=== PATIENT | female | born 1940 | race Caucasian/White ===

== ENCOUNTER 2018-05-12 12:09 | Outpatient (CLI) | payer MEDICARE | END 2018-05-12 12:10 | disposition home or self-care (01) | LOC: LAB.WCP 12:09 | PROVIDERS: ATTEND Family Medicine | DX: M25.511 Pain in right shoulder (principal) | CPT/HCPCS: 36415; 85651 ==

== ENCOUNTER 2018-12-21 08:00 | Outpatient (CLI) | payer MEDICARE ==
[2018-12-21 18:34] LABS: BASOPHILS % (AUTO) 0.2 %; HGB - HEMOGLOBIN 11.4 g/dL (12.0-16.0); LYMPHOCYTES % (AUTO) 56.9 %; MEAN CORPUSCULAR HEMOGLOBIN 26.5 pg (27.0-31.0); MEAN CORPUSCULAR HGB CONC 31.2 g/dL (32.0-36.0); MEAN CORPUSCULAR VOLUME 84.7 fL (81.0-99.0); MEAN PLATELET VOLUME 10.1 fL (7.9-10.8); MONOCYTES % (AUTO) 30.2 %; NEUTROPHILS % (AUTO) 11.5 %; PLT - PLATELET COUNT 188 10^3/uL (130-450); RED BLOOD COUNT 4.31 10^6/uL (4.20-5.40); RED CELL DISTRIBUTION WIDTH 16.4 % (12.0-15.0); WHITE BLOOD COUNT 20.1 x10^3/uL (4.8-10.8)
[2018-12-21 18:37] LABS: ABNORMAL LYMPHS % (MANUAL) 0 %; BAND NEUTROPHILS % (MANUAL) 0 %
[2018-12-21 18:59] LABS: ALBUMIN 4.1 g/dL (3.2-5.5); ALBUMIN/GLOBULIN RATIO 1.4 (1.0-2.2); BILIRUBIN,TOTAL 0.5 mg/dL (0.2-1.0); CALCIUM 9.3 mg/dL (8.5-10.3); CREATININE 0.9 mg/dL (0.4-1.0); TOTAL PROTEIN 7.1 g/dL (6.7-8.2)
[2018-12-21 19:36] LABS: DIFFERENTIAL COMMENT MANUAL DIFFERENTIAL; EOSINOPHILS # (MANUAL) 0.4 10^3/uL (0-0.7); LYMPHOCYTES # (MANUAL) 17.3 10^3/uL (1.5-3.5); LYMPHOCYTES % (MANUAL) 86 %; PLATELET ESTIMATE, MANUAL NORMAL (130-450,000) (NORMAL); PLATELET MORPHOLOGY NORMAL APPEARANCE (NORMAL); RBC MORPHOLOGY (MULTIPLE) 1+ HYPOCHROMASIA (NORMAL)
== END 2018-12-21 23:59 | disposition home or self-care (01) ==
LOC: LAB.WCP 08:00
PROVIDERS: ATTEND Family Medicine
DX: D72.829 Elevated white blood cell count, unspecified (principal)
CPT/HCPCS: 36415; 80053; 85025

== ENCOUNTER 2018-12-22 08:00 | Outpatient (CLI) | payer MEDICARE | END 2018-12-22 23:59 | disposition home or self-care (01) | LOC: LAB.R 08:00 | PROVIDERS: ATTEND Family Medicine | DX: R19.7 Diarrhea, unspecified (principal) | CPT/HCPCS: 81599; 83630; 87045; 87046; 87493 ==

== ENCOUNTER 2019-01-09 09:51 | Outpatient (CLI) | payer MEDICARE ==
[2019-01-09] MEDS ORDERED: IOVERSOL 320 50 ML VIAL ONE (10:13)
[2019-01-09] MEDS ORDERED: IOVERSOL 320 100 ML VIAL IVP ONE ×2 (10:13→11:24)
[2019-01-09] MEDS ORDERED: IOVERSOL 320 50 ML VIAL PO ONE (11:24)
--- NOTE | 2019-01-09 15:22 | CT Report ---
Reason: SPLENOMEGALY, DIARRHEA, LEUKOCYTOSIS Procedure Date: 01/09/2019 Accession Number: [id number] / [id number] Procedure: CT - Abdomen/Pelvis W CPT Code: FULL RESULT: EXAM: CT ABDOMEN AND PELVIS EXAM DATE: 01/09/2019 11:05 AM. CLINICAL HISTORY: Splenomegaly, diarrhea, leukocytosis. COMPARISONS: None. TECHNIQUE: Routine helical CT imaging was performed through the abdomen and pelvis. IV contrast: 90 mL Optiray 320. Enteric contrast: Yes. Reconstructions: Coronal and sagittal. In accordance with CT protocol optimization, one or more of the following dose reduction techniques were utilized for this exam: automated exposure control, adjustment of mA and/or KV based on patient size, or use of iterative reconstructive technique. FINDINGS: Lung Bases: Unremarkable. Liver: Mild hepatomegaly. No mass identified. Gallbladder/Bile Ducts: Unremarkable. Spleen: Splenomegaly, up to 19 cm. Pancreas: Normal. Adrenal Glands: Normal. Kidneys: Normal. No masses or hydronephrosis. Peritoneal Cavity/Bowel: There is no bowel obstruction. There is no definite lymphadenopathy by size criteria. There is no free fluid or free air. Pelvic Organs: In the pelvis is a hypodense/cystic 3.6 x 3.4 cm mass, possibly adnexal in origin. Vasculature: No aneurysms or other significant abnormality. Bones: No significant abnormality. Other: None. IMPRESSION: Hepatosplenomegaly. Hypodense pelvic mass is possibly adnexal in origin, not characterized on this study. In the postmenopausal patient, this would not be considered normal. Recommend pelvic ultrasound for further characterization. RADIA
== END 2019-01-09 09:52 | disposition home or self-care (01) ==
LOC: DI 09:51
PROVIDERS: ATTEND Family Medicine
DX: R16.2 Hepatomegaly with splenomegaly, not elsewhere classified (principal); R19.00 Intra-abdominal and pelvic swelling, mass and lump, unspecified site
CPT/HCPCS: 74177; Q9967

== ENCOUNTER 2019-01-12 16:20 | Outpatient (CLI) | payer MEDICARE ==
--- NOTE | 2019-01-13 08:44 | Ultrasound Report ---
Reason: PELVIC MASS Procedure Date: 01/12/2019 Accession Number: [id number] / [id number] Procedure: US - Pelvic w/Transvaginal CPT Code: FULL RESULT: EXAM: PELVIC ULTRASOUND EXAM DATE: 01/12/2019 04:26 PM. CLINICAL HISTORY: Pelvic lesion seen on abdominal pelvic CT. COMPARISON: Abdominal pelvic CT 01/09/2019. TECHNIQUE: Realtime transabdominal pelvic scan performed to identify the uterus and adnexa and as an overview of other pelvic structures, followed by transvaginal scan to provide greater detail of the uterus and adnexa, with static image documentation. FINDINGS: Uterus: 5.5 x 2.8 x 4.3 cm, volume 35 cc. Anteverted position. Normal overall size and echotexture. Masses: None. Endometrium: 5 mm. No masses or thickening evident. There is a small to moderate amount of fluid in the endometrial canal which appears simple measuring 3 mm in thickness. Cervix: Unremarkable. Right Ovary: 1.5 x 1.0 x 1.4 cm, volume 1.2 cc. Normal echotexture and blood flow. Suboptimally visualized. Left Ovary: 5.6 x 2.9 x 5.8 cm, volume 49 cc. 2 prominent cysts or follicles measure together 5.3 x 3.2 x 4.6 cm. One contains a small amount of hemorrhagic debris. No solid or vascular nodules. No evidence for torsion. Free Fluid: None. Other: None. IMPRESSION: 1. 2 prominent cysts or follicles together measuring up to 5.3 cm as seen on CT. One has a small hemorrhagic component. Given their size, sonographic follow-up in 2-3 months may be considered. 2. Simple fluid in endometrial canal present.
== END 2019-01-12 16:21 | disposition home or self-care (01) ==
LOC: DI 16:20
PROVIDERS: ATTEND Family Medicine
DX: R19.00 Intra-abdominal and pelvic swelling, mass and lump, unspecified site (principal)
CPT/HCPCS: 76830; 76856

== ENCOUNTER 2019-02-24 10:05 | Outpatient (CLI) | payer MEDICARE | END 2019-02-24 10:06 | disposition home or self-care (01) | LOC: LAB 10:05 | PROVIDERS: ATTEND Obstetrics & Gynecology | DX: N83.202 Unspecified ovarian cyst, left side (principal) | CPT/HCPCS: 36415; 86304 ==

== ENCOUNTER 2019-04-05 09:40 | Outpatient (CLI) | payer MEDICARE ==
--- NOTE | 2019-04-05 13:25 | Mammography Report ---
Reason: ROUTINE MAMMO Procedure Date: 04/05/2019 Accession Number: [id number] / [id number] Procedure: TAYA - Screening Mammo w/[place] CPT Code: Final Report FULL RESULT: EXAM: Screening Mammo w/[place] DATE: 04/05/2019 10:15 AM CLINICAL HISTORY: The patient is an asymptomatic 78-year-old female. Maternal history of breast cancer. TECHNIQUE: (B) - Bilateral CC and MLO views were obtained. COMPARISON: 07/31/2014, 08/29/2010 PARENCHYMAL PATTERN: (D) - The breasts demonstrate heterogeneously dense fibroglandular parenchyma bilaterally. FINDINGS: The pattern of asymmetry is stable given positional variation and interval involution. There are no suspicious masses, calcifications, or areas of distortion. IMPRESSION: Negative examination. BI-RADS category 1. RECOMMENDATION: (ANNUAL) - Recommend routine annual screening mammography. BI-RADS CATEGORY: (1) - Negative. STANDARD QUALIFYING STATEMENTS: A negative or benign imaging report should not preclude biopsy if clinically suspicious findings are present. Dense breasts may obscure an underlying neoplasm. This examination was reviewed with the aid of 3D breast imaging (tomosynthesis).
== END 2019-04-05 09:41 | disposition home or self-care (01) ==
LOC: DI 09:40
PROVIDERS: ATTEND Obstetrics & Gynecology
DX: Z12.31 Encounter for screening mammogram for malignant neoplasm of breast (principal); Z80.3 Family history of malignant neoplasm of breast
CPT/HCPCS: 77063; 77067

== ENCOUNTER 2019-04-13 10:35 | Outpatient (CLI) | payer MEDICARE ==
--- NOTE | 2019-04-13 12:29 | Ultrasound Report ---
Reason: LT SIDE OVARIAN CYST Procedure Date: 04/13/2019 Accession Number: [id number] / [id number] Procedure: US - Pelvic w/Transvaginal CPT Code: Final Report FULL RESULT: EXAM: PELVIC ULTRASOUND EXAM DATE: 04/13/2019 11:59 AM. CLINICAL HISTORY: Left side ovarian cyst. COMPARISON: PELVIC W/TRANSVAGINAL 01/12/2019; ABDOMEN/PELVIS W/ 01/09/2019. TECHNIQUE: Realtime transabdominal pelvic scan performed to identify the uterus and adnexa and as an overview of other pelvic structures, followed by transvaginal scan to provide greater detail of the uterus and adnexa, with static image documentation. FINDINGS: Uterus: 5.6 x 2.9 x 4.0 cm, volume 35 cc. Retroflexed position. Normal overall size and echotexture. Masses: 1.3 x 1.0 x 1.6 cm right myometrial mass, likely a fibroid. Endometrium: 7 mm. Simple-appearing fluid is redemonstrated within the endometrium, fluid is 5 mm thick. Cervix: Unremarkable. Right Ovary: 1.7 x 1.1 x 1.3 cm, volume 1.4 cc. Normal echotexture and blood flow. Left Ovary: 6.7 x 3.8 x 5.5 cm, volume 73 cc. A bilobed cyst/two adjacent cysts are again seen measuring 3.7 x 3.3 x 3.4 and 3.1 x 2.6 x 3.3 cm, respectively, at this time. Appearance is mostly simple with no convincing internal solid soft tissue component, question minimally layering density in one of the two cysts, compatible with previous appearance. Free Fluid: Small to medium quantity of free fluid in the pelvis. Other: None. IMPRESSION: Interval enlargement of previously seen cystic conglomerate with development of pelvic fluid. Persistence of free fluid within the endometrium. Suspect uterine fibroid. RADIA
== END 2019-04-13 10:36 | disposition home or self-care (01) ==
LOC: DI 10:35
PROVIDERS: ATTEND Obstetrics & Gynecology
DX: N83.202 Unspecified ovarian cyst, left side (principal)
CPT/HCPCS: 76830; 76856

== ENCOUNTER 2019-05-04 15:31 | Outpatient (CLI) | payer MEDICARE ==
--- NOTE | 2019-05-04 22:58 | XRAY Report ---
Reason: RIGHT SHOULDER PAIN Procedure Date: 05/04/2019 Accession Number: [id number] / [id number] Procedure: WCP - Shoulder 2 View RT CPT Code: Final Report FULL RESULT: EXAM: RIGHT SHOULDER RADIOGRAPHY EXAM DATE: 05/04/2019 03:31 PM. CLINICAL HISTORY: Right shoulder pain, nontraumatic. COMPARISON: None. TECHNIQUE: 2 views. FINDINGS: Bones: Normal. No fracture or bone lesion. Joints: The glenohumeral and acromioclavicular joints are normally aligned. Mild acromioclavicular degenerative changes. No significant glenohumeral degenerative changes. Soft tissues: The visualized hemithorax is unremarkable. No soft tissue swelling. IMPRESSION: 1. No acute abnormality seen in the right shoulder. 2. Mild acromioclavicular degenerative changes. RADIA
== END 2019-05-04 15:32 | disposition home or self-care (01) ==
LOC: DI.WCP 15:31
PROVIDERS: ATTEND Family Medicine
DX: M19.011 Primary osteoarthritis, right shoulder (principal)

== ENCOUNTER 2020-10-15 08:00 | Outpatient (CLI) | payer MEDICARE | END 2020-10-15 08:01 | disposition home or self-care (01) | LOC: LAB.R 08:00 | PROVIDERS: ATTEND Nurse Practitioner | DX: R19.7 Diarrhea, unspecified (principal) | CPT/HCPCS: 81599; 87045; 87177; 87209; 87329; 87427; 87449; 87493 ==

== ENCOUNTER 2020-10-15 08:00 | Outpatient (CLI) | payer MEDICARE ==
[2020-10-15 18:43] LABS: BASOPHILS # (AUTO) 0.1 10^3/uL (0.0-0.1); BASOPHILS % (AUTO) 0.4 %; EOSINOPHILS # (AUTO) 0.2 10^3/uL (0.0-0.7); EOSINOPHILS % (AUTO) 1.4 %; HCT - HEMATOCRIT 38.3 % (37.0-47.0); HGB - HEMOGLOBIN 11.4 g/dL (12.0-16.0); LYMPHOCYTES # (AUTO) 11.2 10^3/uL (1.5-3.5); LYMPHOCYTES % (AUTO) 65.6 %; MEAN CORPUSCULAR HEMOGLOBIN 25.4 pg (27.0-31.0); MEAN CORPUSCULAR HGB CONC 29.8 g/dL (32.0-36.0); MEAN CORPUSCULAR VOLUME 85.5 fL (81.0-99.0); MEAN PLATELET VOLUME 9.9 fL (7.9-10.8); MONOCYTES # (AUTO) 2.4 10^3/uL (0.0-1.0); MONOCYTES % (AUTO) 13.9 %; NEUTROPHILS # (AUTO) 3.1 10^3/uL (1.5-6.6); NEUTROPHILS % (AUTO) 18.5 %; PLT - PLATELET COUNT 187 10^3/uL (130-450); RED BLOOD COUNT 4.48 10^6/uL (4.20-5.40); RED CELL DISTRIBUTION WIDTH 17.1 % (12.0-15.0)
[2020-10-15 18:51] LABS: ALBUMIN 4.4 g/dL (3.2-5.5); ALBUMIN/GLOBULIN RATIO 1.7 (1.0-2.2); ALKALINE PHOSPHATASE 64 IU/L (42-121); ALT ALANINE AMINOTRANSFERASE 15 IU/L (10-60); AST ASPARTATE AMINOTRANSFERASE 19 IU/L (10-42); BILIRUBIN,TOTAL 0.6 mg/dL (0.2-1.0); BUN - BLOOD UREA NITROGEN 12 mg/dL (6-20); CALCIUM 9.8 mg/dL (8.5-10.3); CARBON DIOXIDE - CO2 27 mmol/L (21-32); CHLORIDE 105 mmol/L (101-111); CHOL/HDL RATIO 5.1 (<4.4); CHOLESTEROL 246 mg/dL; CREATININE 0.8 mg/dL (0.4-1.0); GFR - MDRD 69 (>89); GLUCOSE 107 mg/dL (70-100); HDL CHOLESTEROL 48 mg/dL; LDL CHOLESTEROL,CALCULATED 158 mg/dL; LDL/HDL RATIO 3.3 (<4.4); POTASSIUM 4.3 mmol/L (3.5-5.0); SODIUM 139 mmol/L (135-145); TRIGLYCERIDES 202 mg/dL; VLDL CHOLESTEROL 40 mg/dL
[2020-10-15 18:52] LABS: BILIRUBIN,URINE NEGATIVE (NEGATIVE); GLUCOSE, URINE (UA) NEGATIVE (NEGATIVE); KETONES,URINE (UA) NEGATIVE (NEGATIVE); LEUKOCYTE ESTERASE, URINE NEGATIVE (NEGATIVE); NITRITE,URINE NEGATIVE (NEGATIVE); OCCULT BLOOD,URINE SMALL (NEGATIVE); PROTEIN,URINE NEGATIVE (NEGATIVE); UROBILINOGEN,URINE 0.2 (NORMAL) E.U./dL (NORMAL)
[2020-10-15 18:55] LABS: CLARITY,URINE CLEAR (CLEAR)
[2020-10-15 19:19] LABS: BACTERIA,URINE None Seen /HPF (None Seen); RBC,URINE 0-5 /HPF (0-5); SQUAMOUS EPITHELIAL CELL,UR NONE SEEN (<= Few); WBC,URINE 0-3 /HPF (0-5)
[2020-10-15 19:25] LABS: THYROID STIMULATING HORMONE 1.8 uIU/mL (0.34-5.60)
[2020-10-15 19:29] LABS: CRP - C-REACTIVE PROTEIN < 1.0 mg/dL (0-1.0)
[2020-10-15 20:09] LABS: SLIDE REVIEW? Indicated
[2020-10-15 21:18] LABS: RBC MORPHOLOGY (MULTIPLE) NORMAL APPEARANCE (NORMAL)
[2020-10-15 21:19] LABS: DIFFERENTIAL COMMENT MANUAL=AUTO DIFF; PLATELET ESTIMATE, MANUAL NORMAL (130-450,000) (NORMAL); PLATELET MORPHOLOGY NORMAL APPEARANCE (NORMAL); WBC MORPHOLOGY (MULTIPLE) 3+ HAIRY CELLS (NORMAL)
== END 2020-10-15 23:59 | disposition home or self-care (01) ==
LOC: LAB.WCP 08:00
PROVIDERS: ATTEND Nurse Practitioner
DX: C91.40 Hairy cell leukemia not having achieved remission (principal); R07.89 Other chest pain; R53.83 Other fatigue; R51.9 Headache, unspecified
CPT/HCPCS: 36415; 80053; 80061; 81001; 83721; 84443; 85025; 85651; 86140; 87086

== ENCOUNTER 2020-10-24 09:28 | Outpatient (CLI) | payer MEDICARE ==
--- NOTE | 2020-10-24 11:33 | CARDIAC PROCEDURE NOTE ---
Stress Test Report Service Date: 10/24/20 Service Time: 09:30 Ordering Provider: MARKUS Walton Indication for Test: Diffuse chest pressure, occurring primarily when lying down and relieved by getting up and walking. Significant Medical History: Generally healthy and fit woman (lizandro quispe), who reports a "few years" of intermittent supine chest pressure, which has intensified in recent weeks, becoming associated with "dizziness". Was found to be newly hypertensive (she reports BPs running 170's/low 100's) and 10 mg amlodipine was prescribed; however she felt poorly after taking first dose and has not continued it. Cardiac Risk Factors: Recently diagnosed HTN (as above); no known personal or family history of ASCVD; denies diabetes, tobacco smoking history; cholesterol status unknown (not treated). Type of Stress Test: ETT with Echocardiography Procedure: -Exercise Treadmill Test- After signing informed consent, baseline resting images were obtained. The patient then performed exercise using a Quintin protocol. The patient exercised for 7 minutes 49 seconds and achieved a peak heart rate of 145 (102 percent predicted maximum heart rate for age), and an estimated workload of 9.7 METS. The test was terminated due to achieving target heart rate and markedly hypertensive BP response. Resting heart rate: 72 Peak heart rate: 145 Normal response to exercise. Resting BP: 172/98 Peak BP: 238/95 Elevated BP at rest with marked hypertensive BP response to exercise. Rhythm during exercise: Sinus rhythm throughout Symptoms: Patient developed her typical chest pressure transiently in early recovery, with subsequent dizziness. EKG at rest showed normal sinus rhythm, with right atrial abnormality and slight (<0.5 mm) scooping of ST segments in inferior and and lateral leads. EKG at peak stress sinus tachycardia with incremental inferolateral ST depression (>1 mm), consistent with ischemia, though more likely due to massive increase in rate-pressure product (16274 at peak exercise). In Recovery HR rapidly normalized, chest pressure and dizziness resolved quickly with patient assuming sitting position after peak exercise echo images obtained, with return to baseline BP by 6 minutes. Echo imaging performed at rest and with stress will be reported separately. Ramiro Lo MD, was present throughout this stress test and supervised its performance in all aspects. Summary: 1) Outstanding exercise tolerance as evidenced by RADHA of -46%. 2) Abnormal resting EKG, with mild resting ST depression in inferior and anterolateral leads. 4) Hypertensive at baseline with markedly abnormal BP response to exercise. 5) ST depression meeting EKG criteria for ischemia were seen at peak exercise, but may be false positive due to extreme workload (heart rate x SBP product) achieved. 6) Echo image analysis revealed resting hyperdynamic LV function without regional wall motion abnormalities (RWMA), with appropriate exercise-associated augmentation of all segments, EF increase to 75% and no RWMA. See separate stress echo report for more detail. 7) Patient encouraged to resume amlodipine at half dose (5 mg daily) and increase to full dose as tolerated, continue home BP monitoring and check in with referring provider in the next few days, or sooner if 5 mg amlodipine not tolerated. CONCLUSIONS: 1. Hypertensive response to exercise, but with exertional tolerance far above average for age. 2. No evidence of LV functional abnormality at rest, with no evidence of inducible ischemia with exercise. 3. Recommendations given as above for improved BP control. 4. Results of this study were discussed with referring provider.
== END 2020-10-24 09:29 | disposition home or self-care (01) ==
LOC: DI 09:28
PROVIDERS: ATTEND Nurse Practitioner
DX: R07.89 Other chest pain (principal); I10 Essential (primary) hypertension
CPT/HCPCS: 93350

== ENCOUNTER 2021-09-09 15:44 | Outpatient (CLI) | payer MEDICARE ==
--- NOTE | 2021-09-09 16:33 | XRAY Report ---
PROCEDURE: Shoulder 3 View RT INDICATIONS: R SHOULDER PX TECHNIQUE: 3 views of the shoulder were acquired. COMPARISON: None. FINDINGS: Bones: No fractures or dislocations. No suspicious bony lesions. Visualized ribs appear intact. P eriarticular osteophyte formation at the acromioclavicular and glenohumeral joints. Soft tissues: No suspicious soft tissue calcifications. IMPRESSION: Osteoarthritis. No acute fracture. No osseous lesion. If symptoms and/or clinical suspic ion for pathology continue, further assessment with repeat plain films, or advanced imaging (e.g., CT , MRI, or bone scan) is recommended for further assessment. Reviewed by: Beckie Dietrich MD on 09/09/2021 4:32 PM PDT Approved by: Beckie Dietrich MD on 09/09/2021 4:32 PM PDT Station ID: [id number]
== END 2021-09-09 15:45 | disposition home or self-care (01) ==
LOC: DI.N 15:44
PROVIDERS: ATTEND Nurse Practitioner
DX: M19.011 Primary osteoarthritis, right shoulder (principal)

== ENCOUNTER 2022-06-22 09:23 | Outpatient (CLI) | payer MEDICARE ==
--- NOTE | 2022-06-23 09:36 | Mammography Report ---
BILATERAL DIGITAL SCREENING MAMMOGRAM 3D/2D: 06/22/2022 CLINICAL: High risk screening. Routine screening. Comparison is made to exams dated: 04/05/2019 mammogram, 07/31/2014 mammogram, and 08/29/2010 mammogram - [facility]. There are scattered areas of fibroglandular density in both breasts (category b / 25%-50% glandular t issue). No significant masses, calcifications, or other findings are seen in either breast. There has been no significant interval change. IMPRESSION: NEGATIVE There is no mammographic evidence of malignancy. A 1 year screening mammogram is recommended. Based on the Tyrer Cuzick model (a risk assessment model) the patients lifetime risk is 1.4% and her 10 year risk is 0.0%. According to the ACR, ACS, and NCCN guidelines, an annual breast MRI exam dee g with mammogram is recommended if the patients lifetime risk is 20% or greater. This exam was interpreted at Station ID: [id number]. NOTE: For mammograms, a report in lay terms will be sent to the patient. Approximately 15% of breast malignancies will not be visualized mammographically. In the management of a palpable breast mass, a negative mammogram must not discourage biopsy of a clinically suspicious lesion. Electronically Signed By: Lorne rossi/mariya:06/22/2022 11:30:14 letter sent: No_Letter ACR BI-RADS Category 1: Negative 3341F PARENCHYMAL PATTERN: (A) - The breast(s) demonstrate(s) scattered fibroglandular densities. BI-RADS CATEGORY: (1) - 1 Mammogram [id number] 1 year screening LATERALITY: (B)
== END 2022-06-22 09:24 | disposition home or self-care (01) ==
LOC: DI.N 09:23
DX: Z12.31 Encounter for screening mammogram for malignant neoplasm of breast (principal)

== ENCOUNTER 2022-11-24 08:15 | Outpatient (CLI) | payer MEDICARE ==
--- NOTE | 2022-11-24 11:55 | Ultrasound Report ---
PROCEDURE: Abdomen Complete INDICATIONS: ABD PAIN TECHNIQUE: Real-time scanning was performed of the abdominal and retroperitoneal organs, with image documentatio n. COMPARISON: CT abdomen pelvis with, 01/09/2019. FINDINGS: Liver: Liver is mildly enlarged measuring 21 cm in length. Liver demonstrates mildly increased echot exture. No focal hepatic mass. Gallbladder: There is a 3 mm polyp in gallbladder. No gallstones, gallbladder wall thickening, perich olecystic fluid collection or sonographic Saez sign. Biliary ducts: Intrahepatic bile ducts are non-dilated. Extrahepatic bile duct caliber measures 4.4 mm. Normal is 6-7 mm or less in diameter, or 10 mm or less post-cholecystectomy. Pancreas: Visualized portions of the pancreas are sonographically normal. Spleen: Spleen is enlarged measuring 20.8 cm in length with an estimated volume of 360.3 cc. Kidneys: Kidneys are normal in size and echotexture. Right kidney measures 11.4 cm long; left kidne y measures 11.3 cm long. No hydronephrosis or nephrolithiasis. No solid masses. No complex renal cy stic lesions which require follow-up. There is a 2.7 cm simple cyst in the inferior pole of the right kidney. Aorta: Visualized aorta is normal in caliber at less than 3 cm. Iliacs: Proximal common iliac arteries are normal in caliber at less than 2.5 cm. IVC: Intrahepatic inferior vena cava is patent. Miscellaneous: No free abdominal fluid. IMPRESSION: 1. Hepatosplenomegaly. 2. No acute abnormality. Reviewed by: Dick Wasserman MD on 11/24/2022 11:54 AM PDT Approved by: Dick Wasserman MD on 11/24/2022 11:54 AM PDT Station ID: [id number]
--- NOTE | 2022-11-24 17:19 | Ultrasound Report ---
PROCEDURE: Pelvic w/Transvaginal INDICATIONS: PELVIC PAIN TECHNIQUE: Real-time scanning was performed of the pelvic organs, with image documentation. Additional endovagi nal scanning was necessary due to incomplete visualization of the adnexal and endometrial structures by transabdominal scanning. COMPARISON: 04/13/2019. FINDINGS: Uterus: Uterus is anteverted and normal in size at 5.5 x 3 x 4.8 cm. The myometrium is heterogeneou s. 1.8 x 1.5 x 1.8 cm subserosal fibroid in right myometrium is noted previously measures 1.4 x 1.1 x 1.5 cm in size. 1 x 0.9 x 1 cm intramural fibroid in anterior myometrium near midline is seen new si nce previous study. 0.9 x 0.8 x 0.8 cm intramural fibroid in posterior myometrium is also noted new s shanika previous study. The endometrium measures 4 mm in combined thickness. Small amount of fluid wit hin endometrial canal is seen. No endometrial mass is noted Ovaries: The right ovary measures 1.9 x 1.5 x 1.2 cm, with a calculated ovarian volume of 1.8 cc. T he left ovary measures 6.1 x 4.1 x 5.3 cm, with a calculated ovarian volume of 69.3 cc. Less than 12 follicles can be seen in each ovary. No adnexal masses are seen. 4.5 x 4.2 x 3.8 cm and 3.4 x 2.8 x 3.1 cm simple cysts are seen in left ovary. Other: No pathologic free abdominal or pelvic fluid. IMPRESSION: 1. 2 simple appearing cysts noted in left ovary. No solid-appearing ovarian lesion. 2. Heterogeneous myometrium with 3 small uterine fibroids as described above. 3. Trace amount of fluid within endometrial canal. No gross endometrial mass. Reviewed by: Jl Manuel MD on 11/24/2022 5:17 PM PDT Approved by: Jl Manuel MD on 11/24/2022 5:17 PM PDT Station ID: [id number]
== END 2022-11-24 08:16 | disposition home or self-care (01) ==
LOC: DI 08:15
PROVIDERS: ATTEND Nurse Practitioner
DX: N83.292 Other ovarian cyst, left side (principal); D25.1 Intramural leiomyoma of uterus; D25.2 Subserosal leiomyoma of uterus

== ENCOUNTER 2023-07-06 07:19 | Outpatient (CLI) | payer MEDICARE ==
[2023-07-06 07:43] LABS: ALBUMIN 4.4 g/dL (3.2-5.5); ALBUMIN/GLOBULIN RATIO 1.5 (1.0-2.2); ALKALINE PHOSPHATASE 68 IU/L (42-121); ALT ALANINE AMINOTRANSFERASE 15 IU/L (10-60); AST ASPARTATE AMINOTRANSFERASE 20 IU/L (10-42); BILIRUBIN,TOTAL 0.5 mg/dL (0.2-1.0); BUN - BLOOD UREA NITROGEN 16 mg/dL (6-20); CALCIUM 10.1 mg/dL (8.5-10.3); CARBON DIOXIDE - CO2 32 mmol/L (21-32); CHLORIDE 103 mmol/L (101-111); CHOL/HDL RATIO 5.1 (<4.4); CHOLESTEROL 257 mg/dL; CREATININE 1.1 mg/dL (0.6-1.3); GFR - MDRD 48 (>89); GLUCOSE 95 mg/dL (74-104); HDL CHOLESTEROL 50 mg/dL; LDL CHOLESTEROL,CALCULATED 165 mg/dL; LDL/HDL RATIO 3.3 (<4.4); POTASSIUM 4.5 mmol/L (3.5-4.5); SODIUM 138 mmol/L (135-145); TOTAL PROTEIN 7.3 g/dL (6.4-8.9); TRIGLYCERIDES 211 mg/dL (48-352); VLDL CHOLESTEROL 42 mg/dL
[2023-07-06 07:58] LABS: BASOPHILS % (AUTO) 0.5 %; EOSINOPHILS % (AUTO) 1.5 %; HGB - HEMOGLOBIN 11.6 g/dL (12.0-16.0); LYMPHOCYTES % (AUTO) 75.9 %; MEAN CORPUSCULAR HEMOGLOBIN 25.1 pg (27.0-31.0); MEAN CORPUSCULAR HGB CONC 29.7 g/dL (32.0-36.0); MEAN CORPUSCULAR VOLUME 84.4 fL (81.0-99.0); MEAN PLATELET VOLUME 9.5 fL (7.9-10.8); MONOCYTES % (AUTO) 9.5 %; NEUTROPHILS % (AUTO) 12.4 %; PLT - PLATELET COUNT 169 10^3/uL (130-450); RED BLOOD COUNT 4.62 10^6/uL (4.20-5.40); RED CELL DISTRIBUTION WIDTH 16.7 % (12.0-15.0); WHITE BLOOD COUNT 19.1 x10^3/uL (4.8-10.8)
[2023-07-06 07:59] LABS: ABNORMAL LYMPHS % (MANUAL) 0 %; THYROID STIMULATING HORMONE 2.29 uIU/mL (0.34-5.60)
[2023-07-06 08:56] LABS: BAND NEUTROPHILS % (MANUAL) 1 %; BASOPHILS # (MANUAL) 0.2 10^3/uL (0-0.1); BASOPHILS % (MANUAL) 1 %; EOSINOPHILS # (MANUAL) 0.4 10^3/uL (0-0.7); LYMPHOCYTES # (MANUAL) 16.2 10^3/uL (1.5-3.5); LYMPHOCYTES % (MANUAL) 85 %; NEUTROPHILS # (MANUAL) 2.3 10^3/uL (1.5-6.6); PLATELET ESTIMATE, MANUAL NORMAL (130-450,000) (NORMAL); PLATELET MORPHOLOGY NORMAL APPEARANCE (NORMAL); RBC MORPHOLOGY (MULTIPLE) NORMAL APPEARANCE (NORMAL)
[2023-07-06 10:11] LABS: DIFFERENTIAL COMMENT MANUAL DIFFERENTIAL
== END 2023-07-06 07:20 | disposition home or self-care (01) ==
LOC: LAB 07:19
PROVIDERS: ATTEND Nurse Practitioner
DX: I10 Essential (primary) hypertension (principal); E78.5 Hyperlipidemia, unspecified; R53.83 Other fatigue
CPT/HCPCS: 36415; 80053; 80061; 83721; 84443; 85025